=== PATIENT | male | born 1975 | race Caucasian/White ===

== ENCOUNTER 2024-07-15 10:50 | Emergency (ER) | payer BC ==
[~2024-07-15] VITALS: Ht 167.6 cm; Wt 122.5 kg
--- NOTE | 2024-07-15 11:36 | ERN ---
ED Note History of Present Illness Stated Complaint: RIGHT FOOT PAIN Chief Complaint: FOOT INJURY/PAIN Time Seen by MD: 10:54 Time Seen by Midlevel: 11:00 Dictation: 49-year-old male coming in with complaints of right ankle pain. Patient states he stepped wrong couple of days ago and now has ankle pain. Patient does have a history of gout, states he took colchicine this morning but pain is still present decided to come and be evaluated. Allergies: Coded Allergies: No Known Drug Allergies (Unverified Allergy, Unknown, 07/15/24) Past Medical History Past Medical History: Diabetes-Type II, High Cholesterol, Hypertension Surgical History: None Review of System Dictation Constitutional: Negative for fever,chills, and weight loss Eyes: Negative for injury, pain,redness, and discharge ENT: Negative for injury,pain or swelling Cardiovascular: Negative for chest pain, palpitations, and edema Respiratory: Negative for shortness of breath, cough, and wheezing, Abdomen/GI: Negative for abdominal pain, nausea, vomiting, diarrhea, and constipation Back: Negative for injury and pain : Negative for injury, bleeding and discharge MS/Extremity: Complaining of right ankle pain Skin: Negative for rash, and discoloration Neuro: Negative for headache, weakness, numbness, tingling, and seizure Psych: Negative for suicide ideation, homicidal ideation, and hallucinations Review of Systems: was completed Initial Vital Sign VS Vital Signs Date Time Temp Pulse Resp B/P (MAP) Pulse Ox O2 Delivery O2 Flow Rate FiO2 07/15/24 11:06 97.3 96 18 147/95 95 Room Air Physical Exam Dictation General: awake, alert, NAD Head/Face: Normocephalic, atraumatic Eyes: PERRL, EOMI, vision at baseline ENT: oral cavity clear, TMs clear, no signs of infection Neck: Trachea midline, supple, no nuchal rigidity Cardiovascular: RRR, normal S1/S2, No MRGs, no JVD Respiratory: CTAB, no respiratory distress, No rales or wheezes Abdomen: Soft, non-tender, non-distended, normal bowel sounds, no guarding or rebound. Skin: Warm, dry, normal turgor, no rash MS/Extremity: Pulses equal, no cyanosis, neurovascular intact, FROM, swelling and mild ecchymosis noted to the right ankle Neuro: COAx4, GCS 15, strength 5/5, CN 2-12 intact, normal cerebellar exam, normal gait, Psych: Normal behavior, mood, and affect normal Results (Laboratory/Radiology) X-RAY Comment: [address] [address] IMAGING REPORT Signed PATIENT: MEGHAN CLAROS MR#: [id number] : 1975 SEX: M AGE: 49 LOCATION: [facility] ORDER 20 STATUS: REG ER [facility] REPORT#: [id number] SERVICE 19 REASON: pain/swelling ORDERING PHYSICIAN: MABLE APONTE NP PROCEDURE: FT 3VW RT - FOOT COMP 3+VWS RT FOOT COMP 3+VWS RT HISTORY: Pain COMPARISON: None TECHNIQUE: 3 images of the right foot were obtained. FINDINGS: There is no acute displaced fracture or dislocation. There is a calcaneal spur Degenerative changes are seen. IMPRESSION: 1. Findings as described above. DICTATED BY: LAYTON FLETCHER MD DATE: 07/15/241201 ELECTRONICALLY SIGNED BY: LAYTON FLETCHER MD DATE: 07/15/[address] [address] IMAGING REPORT Signed PATIENT: MEGHAN CLAROS MR#: [id number] : 1975 SEX: M AGE: 49 LOCATION: [facility] ORDER 20 STATUS: REG ER REPORT#: [id number] SERVICE 112 REASON: pain/swelling ORDERING PHYSICIAN: MABLE APONTE NP PROCEDURE: [id number] - ANKLE 2VWS RT ANKLE 2VWS RT HISTORY: Pain and swelling COMPARISON: None TECHNIQUE: 2 images of the right ankle were obtained. FINDINGS: There is no acute displaced fracture or dislocation. There is soft tissue swelling. There is a calcaneal spur. There is bone density adjacent to the distal fibula may be related to old trauma. Degenerative changes are seen. IMPRESSION: 1. Findings as described above. DICTATED BY: LAYTON FLETCHER MD DATE: 07/15/24 120 ELECTRONICALLY SIGNED BY: LAYTON FLETCHER MD DATE: 07/15/24 1208 ED Course ED Course Orders Procedure Category Date Status Time Ankle 2vws Rt RAD 07/15/24 Resulted 11:20 Foot Comp 3+Vws Rt RAD 07/15/24 Resulted 11:20 Ketorolac PHA 07/15/24 Complete Tromethamine 15mg/Ml 11:41 Hydrocodone/Apap PHA 07/15/24 Complete 5/325 (Bouton 5/325mg) 11:41 Current Medications Medications (Trade) Dose Ordered Sig/Juju Route PRN Reason Start Time Stop Time Status Last Admin Dose Admin Acetaminophen/ Hydrocodone Bitart (NORco 5/325MG) 1 tab ONCE STAT PO 07/15/24 11:41 07/15/24 11:45 DC 07/15/24 12:13 Ketorolac Tromethamine (toRADol) 15 mg ONCE STAT IM 07/15/24 11:41 07/15/24 11:45 DC 07/15/24 12:13 Vital Signs Date Time Temp Pulse Resp B/P (MAP) Pulse Ox O2 Delivery O2 Flow Rate FiO2 07/15/24 11:06 97.3 96 18 147/95 95 Room Air Medical Decision Making MDM MDM: 49-year-old male coming in with complaints of right ankle pain. Patient states he stepped wrong couple of days ago and now has ankle pain. Patient does have a history of gout, states he took colchicine this morning but pain is still present decided to come and be evaluated. X-ray of the foot shows no acute finding. X-ray of the ankle shows no acute displaced fracture dislocation, calcaneal spur, bone density adjacent to the distal fibula related to old trauma. Patient discussed findings. A orthopedic boot applied. Discussed with the patient that he needs to follow up with PCP. Patient verbalized understanding, answered all questions. Differential diagnosis: Fracture, ankle sprain, Rationale: Tests considered and ordered secondary to shared decision making include: Previous outside records reviewed: Old ER visits. Risk of complication and/or morbidity or mortality of patient management: None Medications-Per medication reconciliation Need for hospitalization: Patient does not meet criteria for hospitalization. Need for emergency major/minor surgery: No There are no social concerns with this patient. Prescription drug management Prescriptions will include symptomatic care Patient's prior external medical records from other ER visits were reviewed by me as indicated. Prior testing and results from previous visits were reviewed. Prior tests were taken into account with medical decision making and resource utilization, independent historian/historians were used to obtain complete medical history. I independently interpreted the test that were performed, results were reviewed by me and considered findings on radiology if ordered. Medical management and examination interpretation discussions were had by me with other qualified healthcare professionals as indicated for the patient's care. DX & DISP Disposition: Discharge Departure Impression: Primary Impression: Ankle sprain Additional Impression: Calcaneal spur of right foot Condition: Stable Additional Instructions: Please follow up with PCP in 1-2 days. Continue taking your medications for gout. Elevated and ice the extremity. Return to ER if symptoms worsen. Referrals: FRANTZ MARTINEZ MD (PCP) Time of Disposition: 12:40 I have reviewed the case, and I agree with, Diagnosis and Plan MABLE APONTE NP July 15, 2024 11:36
--- NOTE | 2024-07-15 12:06 | HMCIMG ---
FOOT COMP 3+VWS RT HISTORY: Pain COMPARISON: None TECHNIQUE: 3 images of the right foot were obtained. FINDINGS: There is no acute displaced fracture or dislocation. There is a calcaneal spur Degenerative changes are seen. IMPRESSION: 1. Findings as described above.
--- NOTE | 2024-07-15 12:08 | HMCIMG ---
ANKLE 2VWS RT HISTORY: Pain and swelling COMPARISON: None TECHNIQUE: 2 images of the right ankle were obtained. FINDINGS: There is no acute displaced fracture or dislocation. There is soft tissue swelling. There is a calcaneal spur. There is bone density adjacent to the distal fibula may be related to old trauma. Degenerative changes are seen. IMPRESSION: 1. Findings as described above.
[2024-07-15] MEDS: ketOROlac 15MG/ML VIAL (15MG/ML) IM STA (12:13)
[2024-07-15] MEDS: HYDROcodone/APAP 5/325 1 TAB TABLET PO STA (12:13)
[2024-07-15 12:54] VITALS: BP 141/88; PULSE 90; RESP 18; TEMP 97.9; O2SAT 95
== END 2024-07-15 13:04 | disposition home or self-care (01) ==
LOC: EDH 10:50
DX: S93.401A Sprain of unspecified ligament of right ankle, initial encounter (principal); M77.31 Calcaneal spur, right foot; E11.9 Type 2 diabetes mellitus without complications; E78.00 Pure hypercholesterolemia, unspecified; I10 Essential (primary) hypertension; X58.XXXA Exposure to other specified factors, initial encounter; Y93.89 Activity, other specified; Y92.89 Other specified places as the place of occurrence of the external cause; Y99.8 Other external cause status
CPT/HCPCS: 99284; 29515; 73600; 73630; 96372; J1885

== ENCOUNTER → 2024-12-20 | Outpatient (CLI) | payer BC ==
--- NOTE | 2024-12-20 15:13 | HMCIMG ---
SACRUM/COCCYX 2+VWS REASON: COCCYDYNIA TECHNIQUE: 3 views of the sacrum were obtained. FINDINGS: There is normal appearance of the sacrum and coccyx. There are no visible fractures. SI joints appear normal as does the symphysis pubis. Soft tissues appear unremarkable as well. IMPRESSION: 1. Normal views of the sacrum and coccyx.
--- NOTE | 2024-12-20 15:13 | HMCIMG ---
ANKLE 2VWS RT REASON: SPRAIN OF ANKLE, RIGHT TECHNIQUE: 2 views were obtained. FINDINGS: There is no evidence of fracture or dislocation. There is no joint effusion. The soft tissues appear unremarkable. There is no evidence of a radiopaque foreign body. There is prominent dorsal and ventral calcaneal spur. IMPRESSION: No acute findings . Prominent dorsal and ventral calcaneal spurs
--- NOTE | 2024-12-20 15:17 | HMCIMG ---
FINGER(S) 2+VWS RT REASON: 4th and 5th digit abrasions of right hand/fingers. pain and swelling s/p fa TECHNIQUE: 2 views were obtained. FINDINGS: There is no evidence of fracture or dislocation. There is no joint effusion. The soft tissues appear unremarkable. There is no evidence of a radiopaque foreign body. The right fourth and fifth digits appears to be normal. IMPRESSION: No acute findings. In right fourth and fifth digit
== END | disposition home or self-care (01) ==
LOC: RAH 09:22
PROVIDERS: ATTEND Internal Medicine
DX: S93.401A Sprain of unspecified ligament of right ankle, initial encounter (principal); S60.121A Contusion of right index finger with damage to nail, initial encounter; M53.3 Sacrococcygeal disorders, not elsewhere classified; M79.641 Pain in right hand; M77.31 Calcaneal spur, right foot; M79.81 Nontraumatic hematoma of soft tissue; W19.XXXA Unspecified fall, initial encounter; Y93.89 Activity, other specified; Y92.89 Other specified places as the place of occurrence of the external cause; Y99.8 Other external cause status
CPT/HCPCS: 72220; 73140; 73600

== ENCOUNTER → 2024-12-25 | Outpatient (CLI) | payer OTHER ==
--- NOTE | 2024-12-26 10:36 | HMCIMG ---
EXAM: CT Cardiac calcium scoring. CLINICAL HISTORY: Screening. TECHNIQUE: Thin collimated axial CT cardiac images were obtained. A CT scan is done according to ALARA (As Low As Reasonably Achievable). CONTRAST: None. COMPARISON: None provided. FINDINGS: Calcium Score: VESSEL Number of lesions Volume mm3 Equi. Mass/mg Calcium score LM 1 0.8 - 0.9 LAD 2 15.2 - 25.6 LCX 4 6.5 - 7.4 RCA 10 229.9 - 277.7 Total 17 252.5 - 311.6 IMPRESSION: The total calcium score is 311.6. 98th percentile. /[place]
== END | disposition home or self-care (01) ==
LOC: RAH 13:27
PROVIDERS: ATTEND Internal Medicine
DX: Z13.6 Encounter for screening for cardiovascular disorders (principal)
CPT/HCPCS: 75571